=== PATIENT | male | born 1990 | race African-American/Black ===

== ENCOUNTER 2016-12-17 17:31 | Emergency (ER) | payer BC ==
[~2016-12-17 17:31] MED LIST: NO MEDICATIONS; ZOFRAN PO
[2016-12-17 17:54] LABS: INFLUENZA A NEG (NEG); INFLUENZA B NEG (NEG)
== END 2016-12-17 18:38 | disposition home or self-care (01) ==
LOC: SED 17:31
PROVIDERS: Physician Assistant
DX: J10.1 Influenza due to other identified influenza virus with other respiratory manifestations (principal)
CPT/HCPCS: 87651; 87804; 99282